=== PATIENT | female | born 1965 | race Caucasian/White ===

== ENCOUNTER → 2020-05-20 07:42 | Outpatient (CLI) | payer BC, SELFPAY ==
--- NOTE | ~2020-05-20 | US_ITS ---
EXAMINATION: US right upper quadrant EXAM DATE: 05/20/2020 08:14 INDICATION: RUQ pain, hemangioma of liver that different imaging facility. TECHNIQUE: Multiple grayscale and Doppler images of the abdomen right upper quadrant were obtained (b y a technologist who performed the scan) and subsequently reviewed. There is no prior study for [facility]. FINDINGS: The pancreatic head and body are normal in appearance. The pancreatic tail is not visualized. The l iver has normal echogenicity and contour. There are no focal liver lesions identified. There is no evidence of intrahepatic biliary duct dilation. Portal venous flow was seen in the hepatopedal, nor mal direction and has normal Doppler waveform. No right-sided hydronephrosis. Common bile duct measures 4 mm, which is normal. The gallbladder wall is normal in thickness, with ex pected amount of distention. No sonographic evidence of pericholecystic fluid. There is no cholelit hiases. Technologist performing exam reports patient did not demonstrate sonographic Manjarrez's sign. Please note that this sign is less reliable in patients who have received pain medication. IMPRESSION: 1. Unremarkable abdominal ultrasound exam. Reviewed, dictated and finalized at location A. [facility] [employer]
== END ==
PROVIDERS: PCP Internal Medicine; Visit Provider Internal Medicine
DX: R10.11 Right upper quadrant pain (principal); D18.03 Hemangioma of intra-abdominal structures
CPT/HCPCS: 76705